=== PATIENT | male | born 1980 | race Caucasian/White ===

== ENCOUNTER 2018-11-17 19:57 | Emergency (ER) | payer OTHER, MEDICAID ==
[~2018-11-17] VITALS: Ht 185.4 cm; Wt 99.3 kg
[2018-11-17 20:22] VITALS: Ht 185.4 cm; Wt 99.3 kg
[2018-11-17 22:27] VITALS: BP 114/74
== END 2018-11-17 22:27 | disposition home or self-care (01) ==
LOC: ED 19:57
DX: J40 Bronchitis, not specified as acute or chronic (principal)